=== PATIENT | male | born 1965 | race Caucasian/White ===

== ENCOUNTER 2017-05-07 08:56 | Day surgery (SDC) | payer OTHER ==
[~2017-05-07] VITALS: Ht 172.7 cm; Wt 81.6 kg
[~2017-05-07 08:56] MED LIST: ASPIRIN81 M2 PO; CALCITRIOL0.25 MCG PO; CALCIUM ACETAT667 M2 PO; CARDURA4 MG PO; CATAPRES0.3 MG PO; LIPITOR80 MG PO; LISINOPRIL5 MG PO; NORVASC10 MG PO; RENA-VITE RX T1 EACH PO; SODIUM BICARBO325 MG PO; ULORIC40 MG PO
[2017-05-07 09:33] LABS: HEMATOCRIT 28.5 % (38.0-50.0); MCH 29.8 PG (29.0-34.0); MCHC 33.7 G/DL (30.0-36.0); MCV 88.5 FL (86-99); MEAN PLAT.VOLUME 11.1 uM^3 (9.0-12.4); PLATELET COUNT 172 K/uL (156-360); RBC DIS.WIDTH-CV 13.1 % (11.8-14.6); RBC DIS.WIDTH-SD 42.6 % (39-53); RED BLOOD COUNT 3.22 M/uL (4.00-5.50); WHITE BLOOD COUNT 7.9 K/uL (4.1-10.2)
[2017-05-07 09:58] VITALS: BP 121/65
[2017-05-07 10:26] LABS: ANION GAP 11 MEQ/L (2-14); CHLORIDE 107 MEQ/L (99-109); GFR ESTIMATE (CALCULATED) 8 mL/min/; GLUCOSE 107 mg/dL (70-99); POTASSIUM 4.9 MEQ/L (3.7-5.4); SAMPLE HEMOLYSIS CHECK 0; SAMPLE ICTERIC CHECK 0; SAMPLE LIPEMIA CHECK 0; SODIUM 141 MEQ/L (136-147); UREA NITROGEN (BUN) 70 mg/dL (9-23)
[2017-05-07 14:48] VITALS: BP 116/57
[2017-05-07 15:45] VITALS: BP 88/48
[2017-05-07 16:28] VITALS: BP 112/61
== END 2017-05-07 16:40 | disposition home or self-care (01) ==
LOC: SDC 08:56
PROVIDERS: Surgery
PROC: 05BF0ZZ Excision of Left Cephalic Vein, Open Approach (ICD-10-PCS; principal; 2017-05-07)
PROC: 031809D Bypass Left Brachial Artery to Upper Arm Vein with Autologous Venous Tissue, Open Approach (ICD-10-PCS; principal; 2017-05-07)
DX: I12.0 Hypertensive chronic kidney disease with stage 5 chronic kidney disease or end stage renal disease (principal); N18.6 End stage renal disease; E78.00 Pure hypercholesterolemia, unspecified; Z79.82 Long term (current) use of aspirin
CPT/HCPCS: 80048; 85027; 93005; J0690; J1644; J2250; J2720; J3010

== ENCOUNTER 2017-07-24 07:03 | Day surgery (SDC) | payer OTHER ==
[~2017-07-24] VITALS: Ht 172.7 cm; Wt 84.0 kg
== END 2017-07-24 09:10 | disposition home or self-care (01) ==
LOC: CATH 07:03
PROC: B51W1ZZ Fluoroscopy of Dialysis Shunt/Fistula using Low Osmolar Contrast (ICD-10-PCS; principal; 2017-07-24)
PROC: 3E03317 Introduction of Other Thrombolytic into Peripheral Vein, Percutaneous Approach (ICD-10-PCS; principal; 2017-07-24)
PROC: 057Y3ZZ Dilation of Upper Vein, Percutaneous Approach (ICD-10-PCS; principal; 2017-07-24)
DX: T82.858A Stenosis of other vascular prosthetic devices, implants and grafts, initial encounter (principal); N18.6 End stage renal disease; Z99.2 Dependence on renal dialysis
CPT/HCPCS: C1725; C1769; C1894; J1644; J2250; J3010

== ENCOUNTER 2017-10-22 10:11 | Day surgery (SDC) | payer OTHER ==
[~2017-10-22] VITALS: Ht 172.7 cm; Wt 77.1 kg
[2017-10-22 12:05] LABS: METH RESISTANT S AUREUS PCR NEGATIVE (NEGATIVE)
[2017-10-22 12:07] LABS: PROBE CHECK PASS; SPECIMEN PROCESSING CONTROL PASS
== END 2017-10-22 12:40 | disposition home or self-care (01) ==
LOC: CATH 10:11
PROVIDERS: Surgery
DX: T82.858A Stenosis of other vascular prosthetic devices, implants and grafts, initial encounter (principal); N18.6 End stage renal disease; Z99.2 Dependence on renal dialysis
CPT/HCPCS: 87641; C1725; C1769; C1894; J1644; J2250; J3010

== ENCOUNTER 2018-02-13 07:26 | Day surgery (SDC) | payer OTHER | END 2018-02-13 10:00 | disposition home or self-care (01) | LOC: CATH 07:26 → SDC 08:30 → CATH 10:00 → SDC 14:56 | DX: T82.858A Stenosis of other vascular prosthetic devices, implants and grafts, initial encounter (principal); N18.6 End stage renal disease; Z99.2 Dependence on renal dialysis; Z79.82 Long term (current) use of aspirin | CPT/HCPCS: 87641; C1725; C1769; C1894; J1644; J2250; J3010 ==